=== PATIENT | male | born 1995 | race Caucasian/White ===

== ENCOUNTER 2021-08-23 02:27 | Emergency (ER) | payer OTHER ==
[~2021-08-23] VITALS: Ht 185.4 cm; Wt 93.0 kg
[2021-08-23] MEDS ORDERED: OLAN2.5 PO (03:48)
== END 2021-08-23 03:51 | disposition home or self-care (01) ==
LOC: ER 02:27
DX: F31.9 Bipolar disorder, unspecified (principal); I10 Essential (primary) hypertension
CPT/HCPCS: 99282; A9270